=== PATIENT | female | born 1940 | race Caucasian/White ===

== ENCOUNTER 2016-12-22 21:22 | Emergency (ER) | payer MEDICARE, BC ==
--- OUTSIDE RECORDS SUMMARY | 2016-12-22 21:44 | XMS REPORT | Summary of Care ---
:1940 Author Organization [facility] Care Team Providers Name Role Phone Simin Keys Primary Care Physician Encounter Date(s): 11/02/16 - 11/02/[address] Discharge Disposition: 01 Discharged to Home or Self Care Attending Physician: Bang Navarrete DO Admitting Physician: Bang Navarrete DO Vital Signs No data available for this section Problem List Condition Effective Dates Status Health Status Informant GERD - Gastro-esophageal reflux Active disease(Confirmed) Glaucoma(Confirmed) Active Multiple adenomatous Active polyps(Confirmed) Osteoporosis(Confirmed) Active (Confirmed) < 1961 Resolved (Confirmed) < 1959 Resolved (Confirmed) < 1963 Resolved (Confirmed) < 1962 Resolved (Confirmed) < 1960 Resolved Shingles(Confirmed) Active Allergies, Adverse Reactions, Alerts No Known Allergies Medications AcipHex 20 mg, Oral, Daily, 0 Refill(s) Start Date: 12/05/13 Stop Date: 12/18/13 Status: DiscontinuedAcipHex 20 mg oral delayed release tablet 1 tab(s), Oral, Daily, # 90 tab(s), 3 Refill(s), Start Date: 12/18/13 14:11:00 CDT, Pharmacy: [facility] Start Date: 12/18/13 Stop Date: 04/25/14 Status: CompletedAcipHex 20 mg oral delayed release tablet 1 tab(s), Oral, Daily, [facility], # [facility] tab(s), 3 Refill(s), Start Date: 15:00:26 CDT, Pharmacy: [facility] Inst[facility] Start Date: 10/29/14 Stop Date: 09/01/16 Status: CompletedAcipHex 20 mg oral delayed release tablet 1 tab(s), Oral, Daily, [facility], # 90 tab(s), 3 Refill(s), 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 Date: 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, 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) [facility] Inst[facility] Start Date: 04/25/14 Stop Date: 10/29/14 Status: DiscontinuedBoniva 150 mg oral tablet 1 tab(s), Oral, qMonth, # 3 tab(s), 4 Refill(s), Start Date: 11/04/14 10:44:00 CDT, Pharmacy: [facility] Start Date: 11/04/14 Status: OrderedBoniva 150 mg oral tablet See Instructions, 0 Refill(s) Start Date: 12/05/13 Stop Date: 11/04/14 Status: DiscontinuedCosopt 1 drop(s), Eye-Both, BID, 0 Refill(s), Start Date: 12/05/13 10:50:00 CDT Start Date: 12/05/13 Status: Orderedpravastatin 20 mg oral tablet 1 tab(s), Oral, Daily, 0 Refill(s) Start Date: 12/05/13 Status: OrderedPremarin 0.625 mg oral tablet See Instructions, insert (0.5G) by vaginal route 1-2 times every week, 0 Refill( s) Special Instructions: insert (0.5G) by vaginal route 1-2 times every week Start Date: 12/05/13 Stop Date: 01/11/14 Status: DiscontinuedPremarin 0.625 mg/g vaginal cream with applicator 0.5 gm, VAG, 2x/Wk, # 42 gm, 1 Refill(s), Start Date: 07/08/14 7:23:19 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, Pharmacy: [facility] Start Date: 07/08/14 Stop Date: 11/04/14 Status: DiscontinuedPremarin 0.625 mg/g vaginal cream with applicator 0.5 gm, VAG, 2x/Wk, # 42 gm, 2 Refill(s), Start Date: 01/11/14 10:45:00 CDT, Pharmacy: [facility] Start Date: 01/11/14 Stop Date: 07/08/14 Status: CompletedPremarin 0.625 mg/g vaginal cream with applicator 0.5 gm, VAG, 2x/Wk, # 42 gm, 2 Refill(s) Start Date: 01/11/14 Stop Date: 01/11/14 Status: DiscontinuedPremarin 0.625 mg/g vaginal cream with applicator 0.5 gm, VAG, 2x/Wk, # 42 gm, 1 Refill(s), Start Date: 11/04/14 10:43:59 CDT, Pharmacy: [facility] Start Date: 11/04/14 Status: OrderedRABEprazole 20 mg oral delayed release tablet 1 tab(s), Oral, Daily, # 90 tab(s), 3 Refill(s), Start Date: 01/22/16 11:04:00 CDT, Pharmacy: [facility] Start Date: 01/22/16 Stop Date: 10/07/16 Status: CompletedRABEprazole 20 mg oral delayed release tablet 1 tab(s), Oral, Daily, # 90 tab(s), 3 Refill(s), Start Date: 02/26/16 8:08:00 CDT, Pharmacy: [facility] Start Date: 02/26/16 Status: OrderedReadi-Cat 2 oral suspension 1 bottle, Oral, BID, # 2 bottles, 0 Refill(s), Start Date: 10/12/16 8:45:00 CDT , Pharmacy: [facility] Start Date: 10/12/16 Stop Date: 10/27/16 Status: Completedsucralfate 1 g oral tablet 1 tab(s), Oral, QID, # 120 tab(s), 0 Refill(s), Start Date: 10/27/16 17:34:00 CDT, Pharmacy: [facility] [id number] Start Date: 10/27/16 Status: OrderedSuprep Bowel Prep Kit oral liquid 1 bottles, Oral, BID, Mix 1 btl to 16oz water and drink. Next morning; repeat use second btl. Complete at least 1 hr before colonscopy., # 1 kit(s), 0 Refill (s), Start Date: 10/29/14 15:05:00 CDT, Pharmacy: [facility] Special Instructions: Mix 1 btl to 16oz water and drink. Next morning; repeat use second btl. Complete at least 1 hr before colonscopy. Start Date: 10/29/14 Stop Date: 12/21/14 Status: Completedtimolol 0.5% ophthalmic solution 1 drop(s), Eye-Both, Daily, 0 Refill(s), Start Date: 12/05/13 10:52:00 CDT Start Date: 12/05/13 Status: Ordered Results No data available for this section Immunizations No data available for this section Procedures Procedure Date Related Diagnosis Body Site Breath Test Fructose1 11/02/16 Colonoscopy2 10/11/16 Esophagogastroduodenoscopy3 10/11/16 Breath Test Bacteria Lactulose4 09/17/16 Colonoscopy5 12/10/14 Colonoscopy and biopsy of colon 02/23/11 Colonoscopy and biopsy of colon 11/29/05 Excision of gallbladder 1999 Colonoscopy Hysterectomy Repair of bladder 1auto-populated from documented surgical [id number] from documented surgical [id number] from documented surgical [id number] from documented surgical [id number] from documented surgical case Social History No data available for this section Assessment and Plan No data available for this section
--- OUTSIDE RECORDS SUMMARY | 2016-12-22 21:44 | XMS REPORT | Summary of Care ---
:1940 Author Organization [facility] Address [address] [place] [address] Care Team Providers Name Role Phone Simin Keys Primary Care Physician Encounter Date(s): 11/11/16 - 11/11/16 [facility], [address] [place] [address]- [facility] Discharge Diagnosis: Encounter for gynecological examination (general) (routine ) without abnormal findings Discharge Diagnosis: History of osteoporosis Discharge Diagnosis: Age-related osteoporosis without current pathological fracture Discharge Diagnosis: Encounter for screening mammogram for malignant neoplasm of breast Discharge Disposition: 01 Discharged to Home or Self Care Attending Physician: Tanner Jules MD Referring Physician: Tanner Jules MD Vital Signs Most recent to oldest [Reference Range]: 1 Peripheral Pulse Rate [60-100 bpm] 67 bpm (11/11/16 9:19 AM) Blood Pressure [90-130/60-90 mmHg] 118/73mmHg (11/11/16 9:19 AM) Mean Arterial Pressure, Cuff 88 mmHg (11/11/16 9:19 AM) Most recent to oldest [Reference Range]: 1 Height/Length Measured 158 cm (11/11/16 9:19 AM) Weight Dosing 54.50 kg1 (11/11/16 9:28 AM) Weight Measured 54.5 kg (11/11/16 9:19 AM) BSA Measured 1.54 m2 (11/11/16 9:19 AM) Body Mass Index Measured 21.83 kg/m2 (11/11/16 9:19 AM) 1Result Comment: This result was because the dosing weight was either not entered or it is>30 days old. This result is based off: Weight Measured November 11, 2016 09:19:00 CDT by Sarah Braun CMA Problem List Condition Effective Dates Status Health [...] Refill(s), Start Date: 12/18/13 14:11:00 CDT, Pharmacy: [facility] Start Date: 12/18/13 Stop Date: 04/25/14 Status: CompletedAcipHex 20 mg oral delayed release tablet 1 tab(s), Oral, Daily, [facility], # 90 tab(s), 3 Refill(s), Start Date: 15:00:26 CDT, Pharmacy: [facility] Start Date: 10/29/14 Stop Date: 09/01/16 Status: CompletedAcipHex 20 mg oral delayed release tablet 1 tab(s), Oral, Daily, [facility], # 90 tab(s), 3 Refill(s), 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 Date: 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, 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) [facility] Instructions: [facility] Start Date: 04/25/14 Stop Date: 10/29/14 Status: DiscontinuedBoniva 150 mg oral tablet 1 tab(s), Oral, qMonth, # 3 tab(s), 4 Refill(s), Start Date: 11/11/16 9:37:40 CDT, Pharmacy: [facility] Start Date: 11/11/16 Stop Date: 11/11/16 Status: DiscontinuedBoniva 150 mg oral tablet 1 tab(s), Oral, qMonth, # 3 tab(s), 4 Refill(s), Start Date: 11/11/16 15:51:00 CDT, Pharmacy: [facility] Start Date: 11/11/16 Status: OrderedBoniva 150 mg oral tablet 1 tab(s), Oral, qMonth, # 3 tab(s), 4 Refill(s), Start Date: 11/04/14 10:44:00 CDT, Pharmacy: [facility] Start Date: 11/04/14 Stop Date: 11/11/16 Status: DiscontinuedBoniva 150 mg oral tablet See Instructions, 0 Refill(s) Start Date: 12/05/13 Stop Date: 11/04/14 Status: DiscontinuedCosopt 1 drop(s), Eye-Both, BID, 0 Refill(s), Start Date: 12/05/13 10:50:00 CDT Start Date: 12/05/13 Status: Orderedpravastatin 20 mg oral tablet 1 tab(s), Oral, Daily, 0 Refill(s) Start Date: 12/05/13 Stop Date: 11/11/16 Status: DiscontinuedPremarin 0.625 mg oral tablet 1/4 applicatorful, Vaginal, 2x/Wk, Two sample tubes Premarin dispensed by [facility], 0 Refill(s), Start Date: 11/11/16 9:58:00 CDT, [id number], 06/23/17 Special Instructions: Two sample tubes Premarin dispensed by [facility] Start Date: 11/11/16 Status: OrderedPremarin 0.625 mg oral tablet See Instructions, insert (0.5G) by vaginal route 1-2 times every week, 0 Refill( s) Special Instructions: insert (0.5G) by vaginal route 1-2 times every week Start Date: 12/05/13 Stop Date: 01/11/14 Status: DiscontinuedPremarin 0.625 mg/g vaginal cream with applicator 0.5 gm, VAG, 2x/Wk, # 42 gm, 3 Refill(s), Start Date: 11/11/16 9:37:38 CDT, Pharmacy: [facility] Start Date: 11/11/16 Stop Date: 11/11/16 Status: DiscontinuedPremarin 0.625 mg/g vaginal cream with applicator 0.5 gm=, Vaginal, 2x/Wk, # 43 gm, 2 Refill(s), Start Date: 11/11/16 15:50:00 CDT , Pharmacy: [facility] Start Date: 11/11/16 Status: OrderedPremarin 0.625 mg/g vaginal cream with applicator 0.5 gm, VAG, 2x/Wk, # 42 gm, 1 Refill(s), Start Date: 07/08/14 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, 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: [facility] Start Date: 07/08/14 Stop Date: 11/04/14 Status: DiscontinuedPremarin 0.625 mg/g vaginal cream with applicator 0.5 gm, VAG, 2x/Wk, # 42 gm, 2 Refill(s), Start Date: 01/11/14 10:45:00 CDT, Pharmacy: [facility] Start Date: 01/11/14 Stop Date: 07/08/14 Status: CompletedPremarin 0.625 mg/g vaginal cream with applicator 0.5 gm, VAG, 2x/Wk, # 42 gm, 2 Refill(s) Start Date: 01/11/14 Stop Date: 01/11/14 Status: DiscontinuedPremarin 0.625 mg/g vaginal cream with applicator 0.5 gm, VAG, 2x/Wk, # 42 gm, 1 Refill(s), Start Date: 11/04/14 10:43:59 CDT, Pharmacy: [facility] Start Date: 11/04/14 Stop Date: 11/11/16 Status: DiscontinuedRABEprazole 20 mg oral delayed release tablet 1 tab(s), Oral, Daily, # 90 tab(s), 3 Refill(s), Start Date: 01/22/16 11:04:00 CDT, Pharmacy: [facility] Start Date: 01/22/16 Stop Date: 10/07/16 Status: CompletedRABEprazole 20 mg oral delayed release tablet 1 tab(s), Oral, Daily, # 90 tab(s), 3 Refill(s), Start Date: 02/26/16 8:08:00 CDT, [facility] Start Date: 02/26/16 Stop Date: 11/11/16 Status: DiscontinuedReadi-Cat 2 oral suspension 1 bottle, Oral, BID, # 2 bottles, 0 Refill(s), Start Date: 10/12/16 8:45:00 CDT , Pharmacy: [facility] Start Date: 10/12/16 Stop Date: 10/27/16 Status: Completedsucralfate 1 g oral tablet 1 tab(s), Oral, QID, # 120 tab(s), 0 Refill(s), Start Date: 10/27/16 17:34:00 CDT, Pharmacy: [id number] Start Date: 10/27/16 Status: OrderedSuprep Bowel Prep Kit oral liquid 1 bottles, Oral, BID, Mix 1 btl to 16oz water and drink. Next morning; repeat use second btl. Complete at least 1 hr before colonscopy., # 1 kit(s), 0 Refill (s), Start Date: 10/29/14 15:05:00 CDT, Pharmacy: [facility] Special Instructions: Mix 1 btl [...] Repair of bladder 1auto-populated from documented surgical [id number] from documented surgical [id number] from documented surgical [id number] from documented surgical [id number] from documented surgical case Social History No data available for this section Assessment and Plan No data available for this section
--- NOTE | 2016-12-22 21:45 | ERNOTE ---
Date of Service: 12/22/16 Time Seen by Provider: 12/22/16 21:37 Stated Complaint: CONGESTION Presenting Symptoms:: cough Source: patient, RN notes reviewed Exam Limitations: no limitations Immunizations: IMMUNIZATION HX Immunizations Up to Date Yes History of Influenza Vaccine Yes Hx Pneumococcal Vaccination No Allergies/Adverse Reactions: Allergies No Known Allergies Allergy (Verified 12/22/16 21:34) Home Medications: HOME MEDICATIONS Calcium 11/19/15 [Last Taken Unknown] Combigan Eye Drops 11/19/15 [Last Taken Unknown] Lumigan 11/19/15 [Last Taken Unknown] - History of Present Ilness Narrative: Chelsea is a 76 year old female brought to the ED by a friend for a cough and chest congestion that began a week ago. The patient reports that she has not felt well, but does not believe she has had a fever. She has not been taking anything for her symptoms. She reports being around her daughter, who has had a cold. Frequency/Possible Cause: Reports: illness exposure Associated Symptoms: Reports: cough, nasal congestion, nasal drainage. Denies: chest pain/soreness, shortness of breath, wheezing, facial pain, dizziness, lightheadedness, earache, headache, sore throat, muscle aches, fever/chills Prior Treatment: Denies: recently seen, currently on antibiotics Review of Systems - Review of Systems Constitutional: Present: fatigue, malaise. Absent: recent illness, fever, chills EYE: Present: no symptoms reported ENT: Present: nose congestion, nasal drainage. Absent: ear pain, sore throat Respiratory: Present: cough. Absent: shortness of breath, orthopnea, wheezing Cardiology: Absent: chest pain, edema Gastrointestinal/Abdominal: Absent: nausea, vomiting, abdominal pain Genitourinary: Present: no symptoms reported Musculoskeletal: Absent: muscle pain, joint pain Skin: Absent: rash, lesions Neurological: Absent: headache, dizziness/light-headedness Endocrine: Present: no symptoms reported Hematologic/Lymphatic: Present: no symptoms reported Psych: Present: no symptoms reported - Patient's Past Medical History Patient History - Medical: Glaucoma Patient History - Cardiac/Respiratory: No pertinent hx Patient History - Cancer: No Hx of Cancer Patient History - Surgical Procedures: Cholecystectomy, Other Patient History - Other: None - Social History Living Situations: home Abuse History: No History of abuse Psych History: No pertinent hx Smoking Status: Former smoker Alcohol Use: occasionally Drug Use: none - Immunizations Immunizations Up to Date: Yes Hx Pneumococcal Vaccination: No History of Influenza Vaccine: Yes Physical Exam - Physical Exam General Appearance: Present: wd/wn, alert, no apparent distress, other - Well dress and groomed Ears, Nose, Throat: Present: normal ENT inspection, normal pharynx. Absent: sinus pain/drainage Neck: Present: normal inspection, nontender, supple. Absent: lymphadenopathy (R ), lymphadenopathy (L) Respiratory: Present: no respiratory distress, no accessory muscle use, rhonchi - throughout right lung Cardiovascular/Chest: Present: regular rate, rhythm, no murmur Extremity Exam: Present: normal inspection, normal range of motion, no edema Neurological Exam: Present: alert, oriented, normal mood/affect, no motor/ sensory deficits Skin Exam: Present: normal color, warm/dry ED Progress - Results and Orders Patient's Lab Results:: I have reviewed the patient's lab results. - Vital Signs Patient's Vital Signs:: I have reviewed the patient's vital signs. Vital Signs: Vital Signs 12/22/16 21:29 Temperature 36.6 C Pulse Rate 70 Respiratory 16 Rate Blood Pressure 122/66 O2 Sat by Pulse 98 Oximetry - X-Ray X-Ray #1 X-Ray: chest Interpretation: Interp. by me X-ray Comments: No acute cardiopulmonary process identified - Progress/Reassessment Chief Complaint: Cough Progress:: Unchanged Departure - Departure Clinical Impression: Acute bronchitis Qualifiers: Bronchitis organism: unspecified organism Qualified Code(s): J20.9 - Acute bronchitis, unspecified Disposition: Home self-care Condition: Good Instructions: Acute Bronchitis Referrals: Simin Keys APN [Primary Care Provider] -
--- OUTSIDE RECORDS SUMMARY | 2016-12-22 21:45 | XMS REPORT | Summary of Care ---
:[address] 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) [facility] Start Date: 04/25/14 Stop Date: 10/29/14 Status: DiscontinuedBoniva 150 mg oral tablet 1 tab(s), Oral, qMonth, # 3 tab(s), 4 Refill(s), Start Date: 11/04/14 10:44:00 CDT, Pharmacy: [facility] Start Date: 11/04/14 Status: OrderedBoniva [...] gm, 1 Refill(s), Start Date: 07/08/14 7:23:19 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, Pharmacy: [facility] Start Date: 07/08/14 Stop Date: 11/04/14 Status: DiscontinuedPremarin 0.625 mg/g vaginal cream with applicator 0.5 gm, VAG, 2x/Wk, # 42 gm, 2 Refill(s), Start Date: 01/11/14 10:45:00 CDT, Pharmacy: [facility] Start Date: 01/11/14 Stop Date: 07/08/14 Status: CompletedPremarin 0.625 mg/g vaginal cream with applicator 0.5 gm, VAG, 2x/Wk, # 42 gm, 2 Refill(s) Start Date: 01/11/14 Stop Date: 01/11/14 Status: DiscontinuedPremarin 0.625 mg/g vaginal cream with applicator 0.5 gm, VAG, 2x/Wk, # 42 gm, 1 Refill(s), Start Date: 11/04/14 10:43:59 CDT, Pharmacy: [facility] Start Date: 11/04/14 Status: OrderedRABEprazole 20 mg oral delayed release tablet 1 tab(s), Oral, Daily, # 90 tab(s), 3 Refill(s), Start Date: 01/22/16 11:04:00 CDT, Pharmacy: [facility] Start Date: 01/22/16 Status: OrderedRABEprazole 20 mg oral delayed release tablet 1 tab(s), Oral, Daily, # 90 tab(s), 3 Refill(s), Start Date: 02/26/16 8:08:00 CDT, Pharmacy: [facility] Start Date: 02/26/16 Status: OrderedSuprep Bowel Prep Kit oral liquid 1 bottles, Oral, BID, Mix 1 btl to 16oz water and drink. Next morning; repeat use second btl. Complete at least 1 hr before colonscopy., # 1 kit(s), 0 Refill (s), Start Date: 10/29/14 15:05:00 CDT, Pharmacy: [facility] Special Instructions: Mix 1 btl [...] Date Related Diagnosis Body Site Breath Test Bacteria Lactulose1 09/17/16 Colonoscopy2 12/10/14 Colonoscopy and biopsy of colon 02/23/11 Colonoscopy and biopsy of colon 11/29/05 Excision of gallbladder 1999 Colonoscopy Hysterectomy Repair of bladder 1auto-populated from documented surgical [id number] from documented surgical case Social History No data available for this section Assessment and Plan No data available for this section
--- OUTSIDE RECORDS SUMMARY | 2016-12-22 21:45 | XMS REPORT | Summary of Care ---
:1940 Author Organization [facility] Address [address] [place] [address] [address] [place] [address] Care Team Providers Name Role Phone Simin Keys Primary Care Physician Encounter Date(s): 09/01/16 - 09/01/16 [facility] [address] [place] [address] [address] [place] [address]- Discharge Diagnosis: Personal history of colonic polyps Discharge Diagnosis: GERD - Gastro-esophageal reflux disease Discharge Diagnosis: Change in bowel habit Discharge Disposition: 01 Discharged to Home or Self Care Attending Physician: Bang Navarrete DO Referring Physician: Bang Navarrete DO Vital Signs Most recent to oldest [Reference Range]: 1 Peripheral Pulse Rate [60-100 bpm] 73 bpm (09/01/16 4:43 PM) Blood Pressure [90-130/60-90 mmHg] 108/72mmHg (09/01/16 4:43 PM) Mean Arterial Pressure, Cuff 84 mmHg (09/01/16 4:43 PM) Most recent to oldest [Reference Range]: 1 Height/Length Measured 158.75 cm (09/01/16 4:43 PM) Height/Length Estimated 158.75 cm (09/01/16 4:43 PM) Weight Estimated 55.6 kg (09/01/16 4:43 PM) Weight Dosing 55.6 kg (09/01/16 4:43 PM) Weight Measured 55.6 kg (09/01/16 4:43 PM) BSA Measured 1.56 m2 (09/01/16 4:43 PM) BSA Estimated 1.57 m2 (09/01/16 4:43 PM) Body Mass Index Measured 22.06 kg/m2 (09/01/16 4:43 PM) Body Mass Index Estimated 22.06 kg/m2 (09/01/16 4:43 PM) Problem List Condition Effective Dates Status Health [...] Refill(s), Start Date: 12/18/13 14:11:00 CDT, Pharmacy: [facility] Start Date: 12/18/13 Stop Date: 04/25/14 Status: CompletedAcipHex 20 mg oral delayed release tablet 1 tab(s), Oral, Daily, [facility], # [facility] tab(s), 3 Refill(s), Start Date: 15:00:26 CDT, Pharmacy: [facility] Inst[facility] Start Date: 10/29/14 Stop Date: 09/01/16 Status: CompletedAcipHex 20 mg oral delayed release tablet 1 tab(s), Oral, Daily, [facility], # 90 tab(s), 3 Refill(s), Start Date: 15: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, 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) [facility] Inst[facility] Start Date: 04/25/14 Stop Date: 10/29/14 Status: DiscontinuedBoniva 150 mg oral tablet 1 tab(s), Oral, qMonth, # 3 tab(s), 4 Refill(s), Start Date: 11/04/14 10:44:00 CDT, Pharmacy: [facility] Start Date: 11/04/14 Status: OrderedBoniva [...] gm, 1 Refill(s), Start Date: 07/08/14 7:23:19 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, Pharmacy: [facility] Start Date: 07/08/14 Stop Date: 11/04/14 Status: DiscontinuedPremarin 0.625 mg/g vaginal cream with applicator 0.5 gm, VAG, 2x/Wk, # 42 gm, 2 Refill(s), Start Date: 01/11/14 10:45:00 CDT, Pharmacy: [facility] Start Date: 01/11/14 Stop Date: 07/08/14 Status: CompletedPremarin 0.625 mg/g vaginal cream with applicator 0.5 gm, VAG, 2x/Wk, # 42 gm, 2 Refill(s) Start Date: 01/11/14 Stop Date: 01/11/14 Status: DiscontinuedPremarin 0.625 mg/g vaginal cream with applicator 0.5 gm, VAG, 2x/Wk, # 42 gm, 1 Refill(s), Start Date: 11/04/14 10:43:59 CDT, Pharmacy: [facility] Start Date: 11/04/14 Status: OrderedRABEprazole 20 mg oral delayed release tablet 1 tab(s), Oral, Daily, # 90 tab(s), 3 Refill(s), Start Date: 01/22/16 11:04:00 CDT, Pharmacy: [facility] Start Date: 01/22/16 Status: OrderedRABEprazole 20 mg oral delayed release tablet 1 tab(s), Oral, Daily, # 90 tab(s), 3 Refill(s), Start Date: 02/26/16 8:08:00 CDT, Pharmacy: [facility] Start Date: 02/26/16 Status: OrderedSuprep Bowel Prep Kit oral liquid 1 bottles, Oral, BID, Mix 1 btl to 16oz water and drink. Next morning; repeat use second btl. Complete at least 1 hr before colonscopy., # 1 kit(s), 0 Refill (s), Start Date: 10/29/14 15:05:00 CDT, Pharmacy: [facility] Special Instructions: Mix 1 btl [...] Procedures Procedure Date Related Diagnosis Body Site Colonoscopy1 12/10/14 Colonoscopy and biopsy of colon 02/23/11 Colonoscopy and biopsy of colon 11/29/05 Excision of gallbladder 1999 Colonoscopy Hysterectomy Repair of bladder 1auto-populated from documented surgical case Social History No data available for this section Assessment and Plan No data available for this section
--- OUTSIDE RECORDS SUMMARY | 2016-12-22 21:45 | XMS REPORT | Summary of Care ---
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) [facility] Instructions: [facility] Start Date: 04/25/14 Stop Date: 10/29/14 Status: DiscontinuedBoniva 150 mg oral tablet 1 tab(s), Oral, qMonth, # 3 tab(s), 4 Refill(s), Start Date: 11/11/16 9:37:40 CDT, Pharmacy: [facility] Start Date: 11/11/16 Stop Date: 11/11/16 Status: DiscontinuedBoniva 150 mg oral tablet 1 tab(s), Oral, qMonth, # 3 tab(s), 4 Refill(s), Start Date: 11/11/16 15:51:00 CDT, Pharmacy: [facility] Start Date: 11/11/16 Status: OrderedBoniva 150 mg oral tablet 1 tab(s), Oral, qMonth, # 3 tab(s), 4 Refill(s), Start Date: 11/04/14 10:44:00 CDT, Pharmacy: [facility] Start Date: 11/04/14 Stop Date: [...] 2x/Wk, Two sample tubes Premarin dispensed by [facility], 0 Refill(s), Start Date: 11/11/16 9:58:00 CDT, [id number], 06/23/17 Special Instructions: Two sample tubes Premarin dispensed by [facility] Start Date: 11/11/16 Status: OrderedPremarin 0.625 mg oral tablet See Instructions, insert (0.5G) by vaginal route 1-2 times every week, 0 Refill( s) Special Instructions: insert (0.5G) by vaginal route 1-2 times every week Start Date: 12/05/13 Stop Date: 01/11/14 Status: DiscontinuedPremarin 0.625 mg/g vaginal cream with applicator 0.5 gm, VAG, 2x/Wk, # 42 gm, 3 Refill(s), Start Date: 11/11/16 9:37:38 CDT, Pharmacy: [facility] Start Date: 11/11/16 Stop Date: 11/11/16 Status: DiscontinuedPremarin 0.625 mg/g vaginal cream with applicator 0.5 gm=, Vaginal, 2x/Wk, # 43 gm, 2 Refill(s), Start Date: 11/11/16 15:50:00 CDT , Pharmacy: [facility] Start Date: 11/11/16 Stop Date: 11/12/16 Status: CompletedPremarin 0.625 mg/g vaginal cream with applicator 0.5 gm, VAG, 2x/Wk, # 42 gm, 1 Refill(s), Start Date: 07/08/14 7:23:19 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, Pharmacy: [facility] Start Date: 07/08/14 Stop Date: 11/04/14 Status: DiscontinuedPremarin 0.625 mg/g vaginal cream with applicator 0.5 gm=, Vaginal, 2x/Wk, # 30 gm, 2 Refill(s), Start Date: 11/12/16 7:55:05 CDT , [email or web address] Start Date: 11/12/16 Status: OrderedPremarin 0.625 mg/g vaginal cream with applicator 0.5 gm, VAG, 2x/Wk, # 42 gm, 2 Refill(s), Start Date: 01/11/14 10:45:00 CDT, Pharmacy: [facility] Start Date: 01/11/14 Stop Date: 07/08/14 Status: CompletedPremarin 0.625 mg/g vaginal cream with applicator 0.5 gm, VAG, 2x/Wk, # 42 gm, 2 Refill(s) Start Date: 01/11/14 Stop Date: 01/11/14 Status: DiscontinuedPremarin 0.625 mg/g vaginal cream with applicator 0.5 gm, VAG, 2x/Wk, # 42 gm, 1 Refill(s), Start Date: 11/04/14 10:43:59 CDT, Pharmacy: [facility] Start Date: 11/04/14 Stop Date: 11/11/16 Status: DiscontinuedRABEprazole 20 mg oral delayed release tablet 1 tab(s), Oral, Daily, # 90 tab(s), 3 Refill(s), Start Date: 01/22/16 11:04:00 CDT, Pharmacy: [facility] Start Date: 01/22/16 Stop Date: 10/07/16 Status: CompletedRABEprazole 20 mg oral delayed release tablet 1 tab(s), Oral, Daily, # 90 tab(s), 3 Refill(s), Start Date: 02/26/16 8:08:00 CDT, Pharmacy: [facility] Start Date: 02/26/16 Stop Date: 11/11/16 Status: DiscontinuedReadi-Cat 2 oral suspension 1 bottle, Oral, BID, # 2 bottles, 0 Refill(s), Start Date: 10/12/16 8:45:00 CDT , Pharmacy: [facility] Start Date: 10/12/16 Stop Date: 10/27/16 Status: Completedsucralfate 1 g oral tablet 1 tab(s), Oral, QID, # 120 tab(s), 0 Refill(s), Start Date: 10/27/16 17:34:00 CDT, Pharmacy: [id number] Start Date: 10/27/16 Status: OrderedSuprep Bowel Prep Kit oral liquid 1 bottles, Oral, BID, Mix 1 btl to 16oz water and drink. Next morning; repeat use second btl. Complete at least 1 hr before colonscopy., # 1 kit(s), 0 Refill (s), Start Date: 10/29/14 15:05:00 CDT, Pharmacy: [facility] Special Instructions: Mix 1 btl [...] Repair of bladder 1auto-populated from documented surgical [id number] from documented surgical [id number] from documented surgical [id number]-csfbvlkoc from documented surgical [id number] from documented surgical case Social History No data available for this section Assessment and Plan No data available for this section
--- OUTSIDE RECORDS SUMMARY | 2016-12-22 21:45 | XMS REPORT | Summary of Care ---
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) [facility] Instructions: [facility] Start Date: 04/25/14 Stop Date: 10/29/14 Status: DiscontinuedBoniva 150 mg oral tablet 1 tab(s), Oral, qMonth, # 3 tab(s), 4 Refill(s), Start Date: 11/04/14 10:44:00 CDT, Pharmacy: [facility] Start Date: 11/04/14 Status: OrderedBoniva [...] gm, 1 Refill(s), Start Date: 07/08/14 7:23:19 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, Pharmacy: [facility] Start Date: 07/08/14 Stop Date: 11/04/14 Status: DiscontinuedPremarin 0.625 mg/g vaginal cream with applicator 0.5 gm, VAG, 2x/Wk, # 42 gm, 2 Refill(s), Start Date: 01/11/14 10:45:00 CDT, Pharmacy: [facility] Start Date: 01/11/14 Stop Date: 07/08/14 Status: CompletedPremarin 0.625 mg/g vaginal cream with applicator 0.5 gm, VAG, 2x/Wk, # 42 gm, 2 Refill(s) Start Date: 01/11/14 Stop Date: 01/11/14 Status: DiscontinuedPremarin 0.625 mg/g vaginal cream with applicator 0.5 gm, VAG, 2x/Wk, # 42 gm, 1 Refill(s), Start Date: 11/04/14 10:43:59 CDT, Pharmacy: [facility] Start Date: 11/04/14 Status: OrderedRABEprazole 20 mg oral delayed release tablet 1 tab(s), Oral, Daily, # 90 tab(s), 3 Refill(s), Start Date: 01/22/16 11:04:00 CDT, Pharmacy: [facility] Start Date: 01/22/16 Status: OrderedRABEprazole 20 mg oral delayed release tablet 1 tab(s), Oral, Daily, # 90 tab(s), 3 Refill(s), Start Date: 02/26/16 8:08:00 CDT, Pharmacy: [facility] Start Date: 02/26/16 Status: OrderedSuprep Bowel Prep Kit oral liquid 1 bottles, Oral, BID, Mix 1 btl to 16oz water and drink. Next morning; repeat use second btl. Complete at least 1 hr before colonscopy., # 1 kit(s), 0 Refill (s), Start Date: 10/29/14 15:05:00 CDT, Pharmacy: [facility] Special Instructions: Mix 1 btl to 16oz water and drink. Next morning; repeat use second btl. Complete at least 1 hr before colonscopy. Start Date: 10/29/14 Stop Date: 12/21/14 Status: Completedtimolol 0.5% ophthalmic solution 1 drop(s), Eye-Both, Daily, 0 Refill(s), Start Date: 12/05/13 10:52:00 CDT Start Date: 12/05/13 Status: Ordered Results Patient Viewable Results Most recent to oldest [Reference Range]: 1 C. diff toxin [Negative] Negative (09/08/16 7:15 AM) Immunizations No data available for this section [...]
--- OUTSIDE RECORDS SUMMARY | 2016-12-22 21:45 | XMS REPORT | Summary of Care ---
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) [facility] Instructions: [facility] Start Date: 04/25/14 Stop Date: 10/29/14 Status: DiscontinuedBoniva 150 mg oral tablet 1 tab(s), Oral, qMonth, # 3 tab(s), 4 Refill(s), Start Date: 11/04/14 10:44:00 CDT, Pharmacy: [facility] Start Date: 11/04/14 Status: OrderedBoniva [...] gm, 1 Refill(s), Start Date: 07/08/14 7:23:19 HAND RIVETER, Pharmacy: [facility] Start Date: 07/08/14 Stop Date: 11/04/14 Status: DiscontinuedPremarin 0.625 mg/g vaginal cream with applicator 0.5 gm, VAG, 2x/Wk, # 42 gm, 2 Refill(s), Start Date: 01/11/14 10:45:00 CDT, Pharmacy: [facility] Start Date: 01/11/14 Stop Date: 07/08/14 Status: CompletedPremarin 0.625 mg/g vaginal cream with applicator 0.5 gm, VAG, 2x/Wk, # 42 gm, 2 Refill(s) Start Date: 01/11/14 Stop Date: 01/11/14 Status: DiscontinuedPremarin 0.625 mg/g vaginal cream with applicator 0.5 gm, VAG, 2x/Wk, # 42 gm, 1 Refill(s), Start Date: 11/04/14 10:43:59 CDT, Pharmacy: [facility] Start Date: 11/04/14 Status: OrderedRABEprazole 20 mg oral delayed release tablet 1 tab(s), Oral, Daily, # 90 tab(s), 3 Refill(s), Start Date: 01/22/16 11:04:00 CDT, Pharmacy: [facility] Start Date: 01/22/16 Stop Date: 10/07/16 Status: CompletedRABEprazole 20 mg oral delayed release tablet 1 tab(s), Oral, Daily, # 90 tab(s), 3 Refill(s), Start Date: 02/26/16 8:08:00 CDT, Pharmacy: [facility] Start Date: 02/26/16 Status: OrderedReadi-Cat 2 oral suspension 1 bottle, Oral, BID, # 2 bottles, 0 Refill(s), Start Date: 10/12/16 8:45:00 CDT , Pharmacy: [facility] Start Date: 10/12/16 Status: OrderedSuprep Bowel Prep Kit oral liquid 1 bottles, Oral, BID, Mix 1 btl to 16oz water and drink. Next morning; repeat use second btl. Complete at least 1 hr before colonscopy., # 1 kit(s), 0 Refill (s), Start Date: 10/29/14 15:05:00 CDT, Pharmacy: [facility] Special Instructions: Mix 1 btl [...] Procedure Date Related Diagnosis Body Site Colonoscopy1 10/11/16 Esophagogastroduodenoscopy2 10/11/16 Breath Test Bacteria Lactulose3 09/17/16 Colonoscopy4 12/10/14 Colonoscopy and biopsy of colon 02/23/11 Colonoscopy and biopsy of colon 11/29/05 Excision of gallbladder 1999 Colonoscopy Hysterectomy Repair of bladder 1auto-populated from documented surgical [id number] from documented surgical [id number]-[id number] from documented surgical [id number] from documented surgical case Social History No data available for this section Assessment and Plan No data available for this section
--- OUTSIDE RECORDS SUMMARY | 2016-12-22 21:45 | XMS REPORT | Summary of Care ---
:1940 Author Organization [facility] Care Team Providers Name Role Phone MassimoSimin Gabriella Primary Care Physician Encounter Date(s): 10/11/16 - 10/11/[address] Discharge Disposition: 01 Discharged to Home or Self Care Attending Physician: Bang Navarrete DO Admitting Physician: Bang Navarrete DO Vital Signs Most recent to oldest 1 2 3 [Reference Range]: Temperature Temporal Artery 36.4 DegC 36.2 DegC [36-38 DegC] (10/11/16 1:45 PM) (10/11/16 9:06 AM) Heart Rate Monitored [60-100 79 bpm 86 bpm 67 bpm bpm] (10/11/16 2:10 PM) (10/11/16 1:55 PM) (10/11/16 1:50 PM) Respiratory Rate [12-20 br/min] 16 br/min 16 br/min 20 br/min (10/11/16 2:10 PM) (10/11/16 1:55 PM) (10/11/16 1:50 PM) SpO2 [90-100 %] 96 % 98 % 99 % (10/11/16 2:10 PM) (10/11/16 1:55 PM) (10/11/16 1:50 PM) SpO2 Location Right hand (10/11/16 9:06 AM) Blood Pressure [90-130/60-90 140/79mmHg 113/79mmHg 110/71mmHg mmHg] *HI* (10/11/16 1:55 PM) (10/11/16 1:50 PM) (10/11/16 2:10 PM) Mean Arterial Pressure Monitor 94 mmHg 88 mmHg 87 mmHg Measure (10/11/16 2:10 PM) (10/11/16 1:55 PM) (10/11/16 1:50 PM) Most recent to oldest [Reference Range]: 1 2 3 Height/Length Measured 160 cm (10/11/16 9:06 AM) Height/Length Estimated 157.48 cm (10/07/16 11:10 AM) Weight Estimated 55.8 kg (10/07/16 11:10 AM) Weight Dosing 54.20 kg1 (10/11/16 9:28 AM) Weight Measured 54.2 kg (10/11/16 9:06 AM) Body Mass Index Measured 21.17 kg/m2 (10/11/16 9:06 AM) 1Result Comment: This result was because the dosing weight was either not entered or it is>30 days old. 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) [facility] Instructions: [facility] Start Date: 04/25/14 Stop Date: 10/29/14 Status: DiscontinuedBoniva 150 mg oral tablet 1 tab(s), Oral, qMonth, # 3 tab(s), 4 Refill(s), Start Date: 11/04/14 10:44:00 CDT, Pharmacy: [facility] Start Date: 11/04/14 Status: OrderedBoniva [...] gm, 1 Refill(s), Start Date: 07/08/14 7:23:19 PORTFOLIO LEAD, Pharmacy: [facility] Start Date: 07/08/14 Stop Date: 11/04/14 Status: DiscontinuedPremarin 0.625 mg/g vaginal cream with applicator 0.5 gm, VAG, 2x/Wk, # 42 gm, 2 Refill(s), Start Date: 01/11/14 10:45:00 CDT, Pharmacy: [facility] Start Date: 01/11/14 Stop Date: 07/08/14 Status: CompletedPremarin 0.625 mg/g vaginal cream with applicator 0.5 gm, VAG, 2x/Wk, # 42 gm, 2 Refill(s) Start Date: 01/11/14 Stop Date: 01/11/14 Status: DiscontinuedPremarin 0.625 mg/g vaginal cream with applicator 0.5 gm, VAG, 2x/Wk, # 42 gm, 1 Refill(s), Start Date: 11/04/14 10:43:59 CDT, Pharmacy: [facility] Start Date: 11/04/14 Status: OrderedRABEprazole 20 mg oral delayed release tablet 1 tab(s), Oral, Daily, # 90 tab(s), 3 Refill(s), Start Date: 01/22/16 11:04:00 CDT, Pharmacy: [facility] Start Date: 01/22/16 Stop Date: 10/07/16 Status: CompletedRABEprazole 20 mg oral delayed release tablet 1 tab(s), Oral, Daily, # 90 tab(s), 3 Refill(s), Start Date: 02/26/16 8:08:00 CDT, Pharmacy: [facility] Start Date: 02/26/16 Status: OrderedSuprep Bowel Prep Kit oral liquid 1 bottles, Oral, BID, Mix 1 btl to 16oz water and drink. Next morning; repeat use second btl. Complete at least 1 hr before colonscopy., # 1 kit(s), 0 Refill (s), Start Date: 10/29/14 15:05:00 CDT, Pharmacy: [facility] Special Instructions: Mix 1 btl to 16oz water and drink. Next morning; repeat use second btl. Complete at least 1 hr before colonscopy. Start Date: 10/29/14 Stop Date: 12/21/14 Status: Completedtimolol 0.5% ophthalmic solution 1 drop(s), Eye-Both, Daily, 0 Refill(s), Start Date: 12/05/13 10:52:00 CDT Start Date: 12/05/13 Status: Ordered Results Patient Viewable Results Most recent to oldest 1 2 3 [Reference Range]: AN - Fi O2 84 % % 22 % % 25 % % (10/11/16 1:40 PM) (10/11/16 1:35 PM) (10/11/16 1:30 PM) Estimated Creatinine Clearance 79.15 mL/min (10/11/16 9:28 AM) Immunizations No data available for this section Procedures Procedure Date Related Diagnosis Body Site Colonoscopy1 10/11/16 Esophagogastroduodenoscopy2 10/11/16 Breath Test Bacteria Lactulose3 09/17/16 Colonoscopy4 12/10/14 Colonoscopy and biopsy of colon 02/23/11 Colonoscopy and biopsy of colon 11/29/05 Excision of gallbladder 1999 Colonoscopy Hysterectomy Repair of bladder 1auto-populated from documented surgical [id number]-vrdhhlcjt from documented surgical [id number] from documented surgical [id number] from documented surgical case Social History No data available for this section Assessment and Plan No data available for this section
--- OUTSIDE RECORDS SUMMARY | 2016-12-22 21:46 | XMS REPORT | Summary of Care ---
:1940 Author Organization [facility] Address [address] [place] [address] [address] [place] [address] Care Team Providers Name Role Phone Simin Keys Primary Care Physician Encounter Date(s): 10/27/16 - 10/27/16 [facility] [address] [place] [address] [address] [place] [address]- Discharge Diagnosis: Heartburn Discharge Diagnosis: Diarrhea Discharge Diagnosis: Bloating Discharge Disposition: 01 Discharged to Home or Self Care Attending Physician: Bang Navarrete DO Referring Physician: Bang Navarrete DO Vital Signs Most recent to oldest [Reference Range]: 1 Peripheral Pulse Rate [60-100 bpm] 80 bpm (10/27/16 4:26 PM) Blood Pressure [90-130/60-90 mmHg] 115/76mmHg (10/27/16 4:26 PM) Mean Arterial Pressure, Cuff 89 mmHg (10/27/16 4:26 PM) Most recent to oldest [Reference Range]: 1 Height/Length Measured 160 cm (10/27/16 4:26 PM) Weight Dosing 55.2 kg (10/27/16 4:26 PM) Weight Measured 55.2 kg (10/27/16 4:26 PM) BSA Measured 1.57 m2 (10/27/16 4:26 PM) Body Mass Index Measured 21.56 kg/m2 (10/27/16 4:26 PM) Problem List Condition Effective Dates Status [...] Refill(s), Start Date: 12/18/13 14:11:00 CDT, Pharmacy: [facility] Start Date: 12/18/13 Stop Date: 04/25/14 Status: CompletedAcipHex 20 mg oral delayed release tablet 1 tab(s), Oral, Daily, [facility], # 90 tab(s), 3 Refill(s), Start Date: 15:00:26 CDT, Pharmacy: [facility] Special Instructions: [facility] Start Date: 10/29/14 Stop Date: 09/01/16 Status: CompletedAcipHex 20 mg oral delayed release tablet 1 tab(s), Oral, Daily, [facility], # 90 tab(s), 3 Refill(s), Start Date: 15:52:47 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, 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) Special Instructions: [facility] Start Date: 04/25/14 Stop Date: 10/29/14 Status: DiscontinuedBoniva 150 mg oral tablet 1 tab(s), Oral, qMonth, # 3 tab(s), 4 Refill(s), Start Date: 11/04/14 10:44:00 CDT, Pharmacy: [facility] Start Date: 11/04/14 Status: OrderedBoniva [...] gm, 1 Refill(s), Start Date: 07/08/14 7:23:19 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, Pharmacy: [facility] Start Date: 07/08/14 Stop Date: 11/04/14 Status: DiscontinuedPremarin 0.625 mg/g vaginal cream with applicator 0.5 gm, VAG, 2x/Wk, # 42 gm, 2 Refill(s), Start Date: 01/11/14 10:45:00 CDT, Pharmacy: [facility] Start Date: 01/11/14 Stop Date: 07/08/14 Status: CompletedPremarin 0.625 mg/g vaginal cream with applicator 0.5 gm, VAG, 2x/Wk, # 42 gm, 2 Refill(s) Start Date: 01/11/14 Stop Date: 01/11/14 Status: DiscontinuedPremarin 0.625 mg/g vaginal cream with applicator 0.5 gm, VAG, 2x/Wk, # 42 gm, 1 Refill(s), Start Date: 11/04/14 10:43:59 CDT, Pharmacy: [facility] Start Date: 11/04/14 Status: OrderedRABEprazole 20 mg oral delayed release tablet 1 tab(s), Oral, Daily, # 90 tab(s), 3 Refill(s), Start Date: 01/22/16 11:04:00 CDT, Pharmacy: [facility] Start Date: 01/22/16 Stop Date: 10/07/16 Status: CompletedRABEprazole 20 mg oral delayed release tablet 1 tab(s), Oral, Daily, # 90 tab(s), 3 Refill(s), Start Date: 02/26/16 8:08:00 CDT, Pharmacy: Pharmacy Start Date: 02/26/16 Status: OrderedReadi-Cat 2 oral suspension 1 bottle, Oral, BID, # 2 bottles, 0 Refill(s), Start Date: 10/12/16 8:45:00 CDT , Pharmacy: [facility] Start Date: 10/12/16 Stop Date: 10/27/16 Status: Completedsucralfate 1 g oral tablet 1 tab(s), Oral, QID, # 120 tab(s), 0 Refill(s), Start Date: 10/27/16 17:34:00 CDT, Pharmacy: [id number] Start Date: 10/27/16 Status: OrderedSuprep Bowel Prep Kit oral liquid 1 bottles, Oral, BID, Mix 1 btl to 16oz water and drink. Next morning; repeat use second btl. Complete at least 1 hr before colonscopy., # 1 kit(s), 0 Refill (s), Start Date: 10/29/14 15:05:00 CDT, Pharmacy: [facility] Special Instructions: Mix 1 btl [...] Repair of bladder 1auto-populated from documented surgical [id number] from documented surgical [id number]-mngrbdohw from documented surgical [id number] from documented surgical case Social History No data available for this section Assessment and Plan No data available for this section
--- OUTSIDE RECORDS SUMMARY | 2016-12-22 21:46 | XMS REPORT | Summary of Care ---
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) [facility] Inst[facility]: [facility] Start Date: 04/25/14 Stop Date: 10/29/14 Status: DiscontinuedBoniva 150 mg oral tablet 1 tab(s), Oral, qMonth, # 3 tab(s), 4 Refill(s), Start Date: 11/11/16 9:37:40 CDT, Pharmacy: [facility] Start Date: 11/11/16 Stop Date: 11/11/16 Status: DiscontinuedBoniva 150 mg oral tablet 1 tab(s), Oral, qMonth, # 3 tab(s), 4 Refill(s), Start Date: 11/11/16 15:51:00 CDT, Pharmacy: [facility] Start Date: 11/11/16 Status: OrderedBoniva 150 mg oral tablet 1 tab(s), Oral, qMonth, # 3 tab(s), 4 Refill(s), Start Date: 11/04/14 10:44:00 CDT, Pharmacy: [facility] Start Date: 11/04/14 Stop Date: [...] 2x/Wk, Two sample tubes Premarin dispensed by [facility], 0 Refill(s), Start Date: 11/11/16 9:58:00 CDT, [id number], 06/23/17 Special Instructions: Two sample tubes Premarin dispensed by [facility] Start Date: 11/11/16 Status: OrderedPremarin 0.625 [...] Refill(s), Start Date: 11/11/16 9:37:38 CDT, Pharmacy: [facility] Start Date: 11/11/16 Stop Date: 11/11/16 Status: DiscontinuedPremarin 0.625 mg/g vaginal cream with applicator 0.5 gm=, Vaginal, 2x/Wk, # 43 gm, 2 Refill(s), Start Date: 11/11/16 15:50:00 CDT , Pharmacy: [facility] Start Date: 11/11/16 Stop Date: 11/12/16 Status: CompletedPremarin 0.625 mg/g vaginal cream with applicator 0.5 gm, VAG, 2x/Wk, # 42 gm, 1 Refill(s), Start Date: 07/08/14 7:23:19 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, Pharmacy: [facility] Start Date: 07/08/14 Stop Date: 11/04/14 Status: DiscontinuedPremarin 0.625 mg/g vaginal cream with applicator 0.5 gm=, Vaginal, 2x/Wk, # 30 gm, 2 Refill(s), Start Date: 11/12/16 7:55:05 CDT , Pharmacy: [facility] Start Date: 11/12/16 Status: OrderedPremarin 0.625 mg/g vaginal cream with applicator 0.5 gm, VAG, 2x/Wk, # 42 gm, 2 Refill(s), Start Date: 01/11/14 10:45:00 CDT, Pharmacy: [facility] Start Date: 01/11/14 Stop Date: 07/08/14 Status: CompletedPremarin 0.625 mg/g vaginal cream with applicator 0.5 gm, VAG, 2x/Wk, # 42 gm, 2 Refill(s) Start Date: 01/11/14 Stop Date: 01/11/14 Status: DiscontinuedPremarin 0.625 mg/g vaginal cream with applicator 0.5 gm, VAG, 2x/Wk, # 42 gm, 1 Refill(s), Start Date: 11/04/14 10:43:59 CDT, Pharmacy: [facility] Start Date: 11/04/14 Stop Date: 11/11/16 Status: DiscontinuedRABEprazole 20 mg oral delayed release tablet 1 tab(s), Oral, Daily, # 90 tab(s), 3 Refill(s), Start Date: 01/22/16 11:04:00 CDT, Pharmacy: [facility] Start Date: 01/22/16 Stop Date: 10/07/16 Status: CompletedRABEprazole 20 mg oral delayed release tablet 1 tab(s), Oral, Daily, # 90 tab(s), 3 Refill(s), Start Date: 02/26/16 8:08:00 CDT, Pharmacy: [facility] Start Date: 02/26/16 Stop Date: 11/11/16 Status: DiscontinuedReadi-Cat 2 oral suspension 1 bottle, Oral, BID, # 2 bottles, 0 Refill(s), Start Date: 10/12/16 8:45:00 CDT , Pharmacy: [facility] Start Date: 10/12/16 Stop Date: 10/27/16 Status: Completedsucralfate 1 g oral tablet 1 tab(s), Oral, QID, # 120 tab(s), 0 Refill(s), Start Date: 10/27/16 17:34:00 CDT, [id number] Start Date: 10/27/16 Status: OrderedSuprep Bowel Prep Kit oral liquid 1 bottles, Oral, BID, Mix 1 btl to 16oz water and drink. Next morning; repeat use second btl. Complete at least 1 hr before colonscopy., # 1 kit(s), 0 Refill (s), Start Date: 10/29/14 15:05:00 CDT, Pharmacy: [facility] Special Instructions: Mix 1 btl [...] Repair of bladder 1auto-populated from documented surgical [id number] from documented surgical [id number] from documented surgical [id number] from documented surgical [id number]-hyqizkoqq from documented surgical case Social History No data available for this section Assessment and Plan No data available for this section
--- OUTSIDE RECORDS SUMMARY | 2016-12-22 21:46 | XMS REPORT | Summary of Care ---
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) Special Instructions: [facility] Start Date: 04/25/14 Stop Date: 10/29/14 Status: DiscontinuedBoniva 150 mg oral tablet 1 tab(s), Oral, qMonth, # 3 tab(s), 4 Refill(s), Start Date: 11/04/14 10:44:00 CDT, Pharmacy: [facility] Start Date: 11/04/14 Status: OrderedBoniva [...] gm, 1 Refill(s), Start Date: 07/08/14 7:23:19 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, Pharmacy: [facility] Start Date: 07/08/14 Stop Date: 11/04/14 Status: DiscontinuedPremarin 0.625 mg/g vaginal cream with applicator 0.5 gm, VAG, 2x/Wk, # 42 gm, 2 Refill(s), Start Date: 01/11/14 10:45:00 CDT, Pharmacy: [facility] Start Date: 01/11/14 Stop Date: 07/08/14 Status: CompletedPremarin 0.625 mg/g vaginal cream with applicator 0.5 gm, VAG, 2x/Wk, # 42 gm, 2 Refill(s) Start Date: 01/11/14 Stop Date: 01/11/14 Status: DiscontinuedPremarin 0.625 mg/g vaginal cream with applicator 0.5 gm, VAG, 2x/Wk, # 42 gm, 1 Refill(s), Start Date: 11/04/14 10:43:59 CDT, Pharmacy: [facility] Start Date: 11/04/14 Status: OrderedRABEprazole 20 mg oral delayed release tablet 1 tab(s), Oral, Daily, # 90 tab(s), 3 Refill(s), Start Date: 01/22/16 11:04:00 CDT, Pharmacy: [facility] Start Date: 01/22/16 Status: OrderedRABEprazole 20 mg oral delayed release tablet 1 tab(s), Oral, Daily, # 90 tab(s), 3 Refill(s), Start Date: 02/26/16 8:08:00 CDT, Pharmacy: [facility] Start Date: 02/26/16 Status: OrderedSuprep Bowel Prep Kit oral liquid 1 bottles, Oral, BID, Mix 1 btl to 16oz water and drink. Next morning; repeat use second btl. Complete at least 1 hr before colonscopy., # 1 kit(s), 0 Refill (s), Start Date: 10/29/14 15:05:00 CDT, Pharmacy: [facility] Special Instructions: Mix 1 btl to 16oz water and drink. Next morning; repeat use second btl. Complete at least 1 hr before colonscopy. Start Date: 10/29/14 Stop Date: 12/21/14 Status: Completedtimolol 0.5% ophthalmic solution 1 drop(s), Eye-Both, Daily, 0 Refill(s), Start Date: 12/05/13 10:52:00 CDT Start Date: 12/05/13 Status: Ordered Results Patient Viewable Results Most recent to oldest [Reference Range]: 1 WBC [4.8-10.8 thou/mm3] 6.1 thou/mm3 (09/02/16 9:45 AM) RBC [4.20-5.40 Mil/mm3] 4.44 Mil/mm3 (09/02/16 9:45 AM) Hgb [12.0-16.0 g/dL] 13.1 g/dL (09/02/16 9:45 AM) Hct [37.0-47.0 %] 39.9 % (09/02/16:45 AM) MCV [80.0-94.0 fL] 89.9 fL (09/02/16:45 AM) MCH [25.0-38.0 pg/cell] 29.5 pg/cell (09/02/16:45 AM) MCHC [31.0-37.0 g/dL] 32.8 g/dL (09/02/16 9:45 AM) RDW [1.0-48.0 fL] 44.0 fL (09/02/16:45 AM) Platelet [130-400 thou/mm3] 313 thou/mm3 (09/02/16 9:45 AM) Neutrophils % Auto [50.0-75.0 %] 57.1 % (09/02/16:45 AM) Immature Granulocyte Auto [0.1-2.0 %] 0.0 % *LOW* (09/02/16:45 AM) Lymphocytes % Auto [15.0-41.0 %] 30.5 % (09/02/16:45 AM) Monocytes % Auto [2.0-10.0 %] 9.3 % (09/02/16 9:45 AM) Eosinophils % Auto [0.0-6.0 %] 2.6 % (09/02/16:45 AM) Basophil % Auto [0.0-1.0 %] 0.5 % (09/02/16:45 AM) Neutrophils Absolute [1.5-5.9 thou/mm3] 3.5 thou/mm3 (09/02/16 9:45 AM) Immature Gran Absolute [0.01-0.03 thou/mm3] 0.00 thou/mm3 *LOW* (09/02/16 9:45 AM) Lymphocytes Absolute [1.5-4.0 thou/mm3] 1.9 thou/mm3 (09/02/16 9:45 AM) Monocytes Absolute [0.0-0.9 thou/mm3] 0.6 thou/mm3 (09/02/16 9:45 AM) Eosinophil Absolute [0.0-0.7 thou/mm3] 0.2 thou/mm3 (09/02/16 9:45 AM) Basophil Absolute [0.0-0.2 thou/mm3] 0.0 thou/mm3 (09/02/16 9:45 AM) Sodium Lvl [135-144 mEq/L] 143 mEq/L (09/02/16:45 AM) Potassium Lvl [3.3-4.8 mEq/L] 4.6 mEq/L (09/02/16:45 AM) Chloride Lvl [98-107 mEq/L] 108 mEq/L *HI* (09/02/16:45 AM) Bicarbonate Lvl [22-30 mmol/L] 25 mmol/L (09/02/16:45 AM) Anion Gap [10.0-20.0] 14.6 (09/02/16:45 AM) Glucose Lvl [70-108 mg/dL] 99 mg/dL (09/02/16:45 AM) BUN [7-21 mg/dL] 20 mg/dL (09/02/16:45 AM) Creatinine Lvl [0.50-1.20 mg/dL] 0.50 mg/dL (09/02/16 9:45 AM) BUN/Creat Ratio 40.0 *NA* (09/02/16:45 AM) eGFR AA [>=60] >60 (09/02/16 9:45 AM) eGFR ESPINOZA [>=60] >60 (09/02/16:45 AM) Calcium Lvl [8.6-10.2 mg/dL] 8.9 mg/dL (09/02/16:45 AM) Total Protein [6.4-8.3 g/dL] 7.2 g/dL (09/02/16 9:45 AM) Albumin Lvl [3.5-5.2 g/dL] 4.1 g/dL (09/02/16 9:45 AM) Globulin 3.1 *NA* (09/02/16:45 AM) A/G Ratio [0.9-1.8] 1.3 (09/02/16:45 AM) Bilirubin Total [0.1-1.0 mg/dL] 0.3 mg/dL (09/02/16 9:45 AM) Alkaline Phosphatase [39-129 unit/L] 56 unit/L (09/02/16 9:45 AM) AST [0-39 unit/L] 18 unit/L (09/02/16 9:45 AM) ALT [0-40 unit/L] 13 unit/L (09/02/16 9:45 AM) C Reactive Protein [0.0-0.4 mg/dL] <0.1 mg/dL (09/02/16 9:45 AM) Estimated Creatinine Clearance 77.44 mL/min (09/02/16 10:29 AM) Immunizations No data available for this [...]
[2016-12-22 22:06] LABS: Hematocrit 38.3 % (37.0-47.0); Hemoglobin 13.1 gm/dL (12.5-16.0); Mean Cell Volume 86.8 fl (78-100); Mean Corpuscular Hemoglobin 29.7 pg (27-31); Mean Corpuscular Hgb Conc 34.2 g/dl (32-36); Mean Platelet Volume 9.2 fl (6.0-9.5); Neutrophil # 3.4 K/mm3 (1.3-6.0); Neutrophil % 42.2 % (42-75.0); Platelet Count 336 K/mm3 (150-450); Red Blood Count 4.41 M/mm3 (4.2-5.4); Red Cell Distribution Width 12.7 % (11.5-14.0)
[2016-12-22 22:18] LABS: Albumin * 3.5 gm/dl (3.4-5.0); BUN/Creatinine Ratio 16.2 (9.0-21.6); Bilirubin, Total 0.3 mg/dL (0.0-1.1); Ca. Corrected For Albumin 9.2 mg/dL (8.4-10.2); Calcium * 9.1 mg/dL (7.9-10.9); Carbon Dioxide 27.7 mmol/L (24-32.6); Potassium 3.7 mmol/L (3.4-4.6); Total Protein 7.7 gm/dL (6.2-8.2)
[2016-12-22 22:32] VITALS: BP 124/78
== END 2016-12-22 22:28 | disposition home or self-care (01) ==
LOC: ER 21:22
DX: J20.9 Acute bronchitis, unspecified (principal)

== ENCOUNTER 2017-01-05 07:20 | Emergency (ER) | payer MEDICARE, BC ==
[2017-01-05 07:28] VITALS: BP 146/90
--- NOTE | 2017-01-05 08:09 | ERNOTE ---
Upper Extremity HPI - General Extremities Pain Location: thumb: right - pain and swelling Time Seen by Provider: 01/05/17 07:40 Source: patient Exam Limitations: no limitations - Immun/Allergies/Home Medications Immunizations: IMMUNIZATION HX Immunizations Up to Date Yes History of Influenza Vaccine Yes Hx Pneumococcal Vaccination Yes Allergies/Adverse Reactions: Allergies Allergy/AdvReac Type Severity Reaction Status Date / Time No Known Allergies Allergy Verified 01/05/17 07:30 Home Medications: HOME MEDICATIONS Calcium 11/19/15 [Last Taken Unknown] Combigan Eye Drops 11/19/15 [Last Taken Unknown] Lumigan 11/19/15 [Last Taken Unknown] - History of Present Illness Narrative: Pt had onset of right hand pain this am. No known injury but may have overused it yesterday pulling a suitcase up a large flight of stairs. Occurred: yesterday - possibly Method of Injury: Reports: unknown Modifying Factors - (Improves): Reports: immobilization Modifying Factors - (Worsens): Reports: movement Review of Systems - Review of Systems Constitutional: Absent: recent illness Musculoskeletal: Present: See HPI Skin: Absent: rash Neurological: Absent: numbness, tingling Hematologic/Lymphatic: Present: easy bruising - Patient's Past Medical History Patient History - Medical: Glaucoma, Osteoporosis Patient History - Cardiac/Respiratory: No pertinent hx Patient History - Cancer: No Hx of Cancer Patient History - Surgical Procedures: Cholecystectomy, Hysterectomy, Other Patient History - Other: None - Social History Living Situations: home Abuse History: No History of abuse Psych History: No pertinent hx Smoking Status: Never smoker Have you smoked in the past 12 months: No Alcohol Use: occasionally Drug Use: none - Immunizations Immunizations Up to Date: Yes Hx Pneumococcal Vaccination: Yes History of Influenza Vaccine: Yes Physical Exam - Physical Exam General Appearance: Present: wd/wn, alert, mild distress Head Exam: Present: normal inspection, no evidence of injury Eye Exam: Normal inspection: bilateral Neck: Present: normal inspection, supple Respiratory: Present: no respiratory distress, no accessory muscle use Peripheral Pulses: N=norm/S=strong/W=weak/B=bound/A=absent: Radial (R): Normal Extremity Exam: Present: normal except - - tenderness at 1st CMC Neurological Exam: Present: alert, oriented, normal mood/affect, no motor/ sensory deficits Skin Exam: Present: warm/dry, other - mild erythema to the area surrounding the first CMC joint on the right. ED Progress - Vital Signs Vital Signs: Vital Signs 01/05/17 07:25 Temperature 36.7 C Pulse Rate 65 Respiratory 16 Rate Blood Pressure 146/90 O2 Sat by Pulse 98 Oximetry - X-Ray X-Ray #1 X-Ray: wrist Interpretation: Interp. by me X-ray Comments: No fracture or dislocation. mild STS noted. - Progress/Reassessment Chief Complaint: Hand Injury/Pain Departure Clinical Impression: De Quervain's disease (tenosynovitis) - Departure Disposition: Home Follow Up Needed Condition: Good Instructions: De Quervain Tenosynovitis Additional Instructions: See your regular doctor for follow up in the next week. Take ibuprofen 400mg ( 2 tablets) three times a day for one week.
== END 2017-01-05 08:25 | disposition home or self-care (01) ==
LOC: ER 07:20
PROC: 2W3EX1Z Immobilization of Right Hand using Splint (ICD-10-PCS; principal; 2017-01-05)
DX: M65.4 Radial styloid tenosynovitis [de Quervain] (principal)